=== PATIENT | male | born 1950 | race Caucasian/White ===

== ENCOUNTER 2020-11-23 08:55 | Emergency (ER) | payer MEDICARE, OTHER ==
[2020-11-23 09:10] VITALS: BP 136/82
[2020-11-23] MEDS ORDERED: TETANUS/DIPHTHERIA/PERTUSSIS 0.5 ML SYRINGE IM ONE (10:06)
[2020-11-23] MEDS ORDERED: BUFFERED LIDOCAINE 10 ML SYRINGE IU ONE (10:06)
[2020-11-23] MEDS ORDERED: BACITRACIN ZINC OINT 1 PACKET TOP STA (12:04)
--- NOTE | 2020-11-23 12:07 | ED Physician Documentation ---
PD HPI SKIN - Stated complaint Stated Complaint: HEAD LAC - Chief complaint Chief Complaint: Laceration - History obtained from History obtained from: Patient - Additional information Additional information: Patient comes emergency department chief complaint of facial and leg wounds [place]. He states he did not hit first with his head but did strike his face on the log. He did not lose consciousness. He has some swelling and bruising of his left upper eyelid, but no other facial pain. No neck pain. No numbness or tingling. He has a wound on his left lateral knee and on his right hsieh, as well. Patient is on Coumadin, but bleeding has been controlled. No other complaints at this time. Review of Systems Ten Systems: 10 systems reviewed and negative Constitutional: reports: Reviewed and negative Eyes: reports: Reviewed and negative Ears: reports: Reviewed and negative Nose: reports: Reviewed and negative Throat: reports: Reviewed and negative Cardiac: reports: Reviewed and negative Respiratory: reports: Reviewed and negative GI: reports: Reviewed and negative : reports: Reviewed and negative Skin: reports: Laceration (s) Musculoskeletal: reports: Reviewed and negative Neurologic: reports: Reviewed and negative Psychiatric: reports: Reviewed and negative Endocrine: reports: Reviewed and negative Immunocompromised: reports: Reviewed and negative PD PAST MEDICAL HISTORY - Past Medical History Past Medical History: Yes Cardiovascular: Hypertension, High cholesterol Respiratory: None Neuro: None GI: None HEENT: Chronic hearing loss - Past Surgical History Past Surgical History: No - Allergies Allergies/Adverse Reactions: Allergies Allergy/AdvReac Type Severity Reaction Status Date / Time No Known Drug Allergies Allergy Verified 11/23/20 09:10 - Social History Does the pt smoke?: No Smoking Status: Never smoker Does the pt drink ETOH?: No Does the pt have substance abuse?: No - Immunizations Immunizations are current?: Yes - POLST Patient has POLST: No PD ED PE NORMAL - Vitals Vital signs reviewed: Yes - General General: Alert and oriented X 3, No acute distress, Well developed/nourished - HEENT HEENT: PERRL, EOMI, Moist mucous membranes, Other (2.5 cm irregular laceration About 2 cm superior to left eyebrow horizontally. Mild amount of particulate foreign matter consistent with failed. 1 cm total length flap laceration to right nasal bridge. Bleeding controlled.) - Neck Neck: Supple, no meningeal sign, No bony TTP - Respiratory Respiratory: No respiratory distress - Derm Derm: Normal color, Warm and dry, No rash, Other (Facial lacerations as above. 1.5 cm skin flap/avulsion right midAnterior tibial area. Bleeding controlled. No foreign body. Tiny skin flap/avulsion left lateral knee, no foreign body or bleeding.) - Extremities Extremities: No deformity, No tenderness to palpate, Normal ROM s pain, No edema, No calf tenderness / cord - Neuro Neuro: Alert and oriented X 3, carpet tile layer 2-12 intact, No motor deficit, No sensory deficit, Normal speech - Psych Psych: Normal mood, Normal affect Results - Vitals Vitals: Vital Signs - 24 hr 11/23/20 09:06 Temperature 36.6 C Heart Rate 92 Respiratory 15 Rate Blood Pressure 136/82 H O2 Saturation 99 Oxygen O2 Source Room air Procedures - Laceration (location) face Length in cm: 3 Wound type: Irregular, Into subcut fat, Contaminated (Particulate matter) Neurovascular status: Sensory intact, Motor intact, Vascular intact Anesthesia: Lidocaine 1% Wound preparation: Hibiclens, Irrigated copiously NS, Wound explored, To the base, FB identified, FB removed Skin layer closure: Nylon, Interrupted, Size #-0 - enter number (4.0), Sutures - enter # (8) Other: Patient tolerated well, No complications, Neurovascular intact, Dressing applied, Tetanus UTD, Other (Laceration documentation includes both forehead and nasal lacerations.) PD MEDICAL DECISION MAKING - ED course Complexity details: considered differential, d/w patient, d/w family ED course: Wounds were repaired as above. Patient's tetanus was updated in the emergency department. We have discussed wound care at home and the usual indications for return. Patient should have sutures removed in 5 to 7 days. Departure - Departure Disposition: 01 Home, Self Care Clinical Impression: Laceration Condition: Stable Instructions: ED Laceration Facial Sutr Tape Comments: Please keep your wounds clean and dry generally. You may let water run over the wounds but please do not rub, scrub, or immerse the sutured wounds until sutures are removed. The sutures are nonabsorbable and should be removed by a medical professional in 5 to 7 days. You may go to urgent care, walk-in clinic, or your primary care physician's office for this. If you are unable to have the sutures removed any of these locations, you may come to the emergency department. Please return sooner if you develop redness or swelling spreading away from the wounds, or if you develop drainage and failure of healing, as these may be signs of infection.
== END 2020-11-23 12:27 | disposition home or self-care (01) ==
LOC: ED 08:55
DX: S01.22XA Laceration with foreign body of nose, initial encounter (principal); S01.81XA Laceration without foreign body of other part of head, initial encounter; S81.012A Laceration without foreign body, left knee, initial encounter; W01.198A Fall on same level from slipping, tripping and stumbling with subsequent striking against other object, initial encounter; Y93.01 Activity, walking, marching and hiking; Y92.832 Beach as the place of occurrence of the external cause; I10 Essential (primary) hypertension; Z79.01 Long term (current) use of anticoagulants; Z23 Encounter for immunization
CPT/HCPCS: 12013; 90471; 90715; 99282; 99283; A9270

== ENCOUNTER 2020-11-29 15:50 | Emergency (ER) | payer MEDICARE ==
[2020-11-29 15:55] VITALS: BP 160/80
--- NOTE | 2020-11-29 15:58 | ED Physician Documentation ---
PD HPI WOUND RECHECK - Stated complaint Stated Complaint: STITCHES REMOVED - Chief complaint Chief Complaint: Laceration - Histroy obtained from History obtained from: Patient - History of Present Illness Location: Face (forehead) Associated symptoms: No: Fever, Redness, Swelling, Drainage Recently seen: Emergency Dept Review of Systems Constitutional: denies: Fever, Chills Skin: denies: Rash PD PAST MEDICAL HISTORY - Past Medical History Cardiovascular: Hypertension, High cholesterol Respiratory: None Neuro: None GI: None HEENT: Chronic hearing loss - Past Surgical History Past Surgical History: No - Allergies Allergies/Adverse Reactions: Allergies Allergy/AdvReac Type Severity Reaction Status Date / Time No Known Drug Allergies Allergy Verified 11/29/20 15:54 - Social History Does the pt smoke?: No Smoking Status: Never smoker Does the pt drink ETOH?: No Does the pt have substance abuse?: No - Immunizations Immunizations are current?: Yes - POLST Patient has POLST: No PD ED PE NORMAL - Vitals Vital signs reviewed: Yes - General General: Alert and oriented X 3, No acute distress, Well developed/nourished - HEENT HEENT: Other (forehead with healing wound without signs of infection. Sutures intact. Mild crusting.) Results - Vitals Vitals: Vital Signs - 24 hr 11/29/20 15:54 Temperature 36.5 C Heart Rate 87 Respiratory 16 Rate Blood Pressure 160/80 H O2 Saturation 98 Oxygen O2 Source Room air Procedures - Suture/staple Removal (location) forehead Suture/staple removal: No complications, Other (no signs of infection. All sutures removed.) PD MEDICAL DECISION MAKING - ED course Complexity details: considered differential (stitches removed without problems. No signs of infection. ), d/w patient Departure - Departure Disposition: 01 Home, Self Care Clinical Impression: Encounter for removal of sutures Condition: Stable Comments: Continue cleaning with soap and water and applying ointment once or twice daily until fully healed. Discharge Date/Time: 11/29/20 16:23
== END 2020-11-29 16:23 | disposition home or self-care (01) ==
LOC: ED 15:50
DX: S01.81XD Laceration without foreign body of other part of head, subsequent encounter (principal); X58.XXXD Exposure to other specified factors, subsequent encounter
CPT/HCPCS: 99281